=== PATIENT | female | born 1995 | race Two or more races ===

== ENCOUNTER 2024-10-26 14:40 | Emergency (ER) | payer MEDICAID, SELFPAY ==
[2024-10-26 15:17] VITALS: BP 113/77; PULSE 77; RESP 18; TEMP 36.8; O2SAT 99
--- NOTE | 2024-10-26 15:42 | EDRME_ITS ---
Rapid Medical Screening Exam RME Arrival date/time: 10/26/24 14:40 Chief Complaint: Vaginal Bleeding Vital signs: Vital Signs Temperature 98.3 F 10/26/24 15:17 Pulse Rate 77 10/26/24 15:17 Respiratory Rate 18 10/26/24 15:17 Blood Pressure 113/77 10/26/24 15:17 Pulse Oximetry (%) 99 10/26/24 15:17 Oxygen Delivery Method Room Air 10/26/24 15:17 Pulse ox is 99% room air Vital signs reviewed by provider: Yes [facility] Narrative: For the last 15 days patient complains of vaginal bleeding she describes it as slight and seen only upon wiping. She also complains of left lower quadrant pain. Patient has had mixed results with regards to testing.
--- NOTE | 2024-10-26 15:54 | XR_ITS ---
Examination: Complete OB ultrasound, less than 14 weeks, transabdominal Date and time of exam: October 26, 2024 1603 hours INDICATIONS: Vaginal bleeding beginning 13 days ago Technique: Obstetrical ultrasound images less than 14 weeks performed via transabdominal imaging Findings: Uterus 8.9 cm no uterine mass or intrauterine gestation Endometrial stripe 13 mm Right ovary 2.9 cm arterial flow Left ovary 3.1 cm arterial flow IMPRESSION: No uterine mass or intrauterine gestation
[2024-10-26 16:52] LABS: Basophils # (Auto) 0.0 Thou/mm3 (0.0-0.2); Basophils % (Auto) 0 % (0-2.5); Eosinophils # (Auto) 0.0 Thou/mm3 (0.0-0.5); Eosinophils % (Auto) 0 % (0-10); Hematocrit 39.6 % (36.0-46.0); Hemoglobin 13.1 g/dL (12.0-16.0); Immature Granulocytes Auto 0.02 Thou/mm3 (0.00-0.00); Lymphocytes # (Auto) 1.5 Thou/mm3 (1.0-4.8); Lymphocytes % (Auto) 20 % (10-50); Mean Corpuscular HGB Conc 33.1 g/dl (31.0-37.0); Mean Corpuscular Hemoglobin 30.5 pg (25.0-35.0); Mean Corpuscular Volume 92 fL (80-100); Monocytes # (Auto) 0.4 Thou/mm3 (0.0-0.8); Monocytes % (Auto) 5 % (0-12); Neutrophils # (Auto) 5.7 Thou/mm3 (1.8-7.7); Neutrophils % (Auto) 75 % (37-80); Nucleated Red Blood Cell # 0.00 Thou/mm3 (0.00-0.00); Nucleated Red Blood Cell % 0 /100 WBC (0); Platelet Count 286 Thou/mm3 (140-440); RDW Standard Deviation 43.0 fL (36.4-46.3); Red Blood Count 4.29 Miln/mm3 (4.00-5.20); White Blood Count 7.7 Thou/mm3 (3.6-11.0)
[2024-10-26 17:31] LABS: Alanine Aminotransferase < 7 U/L (10-49); Albumin, Serum 4.9 gm/dL (3.5-5.0); Albumin/Globulin Ratio 1.9 (1.2-2.2); Alkaline Phosphatase 48 U/L (46-116); Anion Gap 9 (7-16); Aspartate Amino Transferase 14 U/L (0-34); BUN/Creatinine Ratio 13 Ratio (12-20); Beta HCG,Quantitative 56 mIU/mL (<5.0); Bilirubin,Total 0.7 mg/dL (0.3-1.2); Blood Urea Nitrogen 9 mg/dL (9-23); Calcium 10.0 mg/dL (8.3-10.6); Calcium (Corrected) 10.0 mg/dL (8.5-10.1); Carbon Dioxide 25.8 mMol/L (20.0-31.0); Chloride 106 mMol/L (98-107); Creatinine (Component) 0.7 mg/dL (0.6-1.3); Estimated Creatinine Clearance 90.9 mL/min (>60); Globulin 2.6 gm/dL (2.3-3.5); Glucose 114 mg/dL (74-106); Lipase 36 U/L (12-53); Osmolality,Calculated 280 (275-295); Potassium 4.5 mMol/L (3.4-5.1); Sodium 141 mMol/L (136-145); Total Protein 7.5 gm/dL (5.7-8.2); eGFR > 60 See Note
--- NOTE | 2024-10-26 19:42 | PD.EDVAGBL ---
ED OB Contraction Preg RMI/HPI General Chief complaint: Vaginal Bleeding Stated complaint: VAGINAL BLEEDING, Time Seen by Provider: 10/26/24 18:17 Arrival date/time: 10/26/24 14:40 RME / HPI RME / HPI Narrative: For the last 15 days patient complains of vaginal bleeding she describes it as slight and seen only upon wiping. She also complains of left lower quadrant pain. Patient has had mixed results with regards to testing. This section includes all my notes and documentations, including HPI, PE, and ED course. Alex Borges MD HPI: 29yo female here with vaginal spotting for the last couple of weeks. LMP was 09/17/24. Patient recently had a positive at-home test. No abdominal pain or back pain. No other complaints reported. ROS: All negative except as documented in HPI. Physical Exam: General: Alert and oriented. No acute distress when remaining still. Eyes: Conjunctivae and lids clear. ENT: No nasal congestion. Neck: Supple. Heart: RRR. Lungs: No respiratory distress. Good air movement. No rhonchi, wheezing, rales. Abdomen: Soft and nontender. Normal bowel sounds. No distension. No rebound or guarding. Back: No CVA tenderness. Skin: Warm and dry. Neuro: Alert and oriented X 3. I reviewed all diagnostic test results. My review of the OB ultrasound report is no IUP. Blood tests unremarkable except Beta HCG 56. At this point, diagnoses include threatened miscarriage. Recommended expectant management. Based on my best medical judgment, made decision no further evaluation or treatment indicated at this time. Patient understands and agrees to the discharge instructions customized and printed, see below. Discharge Instructions from Dr. Borges printed for you: 1. After evaluation, we can't see in your uterus. 2. Based on your last menstruation 09/17/24, gestational age today is 5 4/7 weeks. 3. Only time will tell what will happen. If your bleeding gets severe, you can have a miscarriage. If your symptoms stop, you can have successful . 4. If you do have a miscarriage, we won't be able to save your baby. Under 20-24 weeks, we can't save the baby. 5. No sexual activity until cleared by a doctor taking care of you. 6. See a private doctor on 10/29/24 for recheck and further care. Ask to review all test results and official radiology reports, to make sure you receive all necessary follow-ups and monitoring. Your hCG ( hormone level) was 56. This doubles every 3 days in normal . Ask for repeat ultrasound in 1-2 weeks. But not before, will be too early to see any . 7. Seek immediate medical care with intolerable pain, extremely heavy vaginal bleeding (soaking more than 3 pads per hour), or with any concerns. Alex Borges MD Related Data Allergies Allergy/AdvReac Type Severity Reaction Status Date / Time No Known Allergies Allergy Verified 10/26/24 14:44 Review of Systems Review of Systems Systems Reviewed: All systems reviewed, normal except as documented Past Medical History Social History SMOKING STATUS: Never smoker ED Exam Narrative Physical exam: As noted in HPI. Course Quality Measures none Orders Category Date Time Status US OB <= 14 weeks fetus Stat Exams 10/26/24 15:54 Taken Beta HCG,Quantitative Stat Lab 10/26/24 16:24 Completed CBC Stat Lab 10/26/24 16:24 Completed CMP [Comprehensive Metabolic Panel] Stat Lab 10/26/24 16:24 Completed Lipase Stat Lab 10/26/24 16:24 Completed Rh Testing Only Stat Lab 10/26/24 16:24 Completed Vital Signs Vital signs: Vital Signs Temperature 98.3 F 10/26/24 15:17 Pulse Rate 77 10/26/24 15:17 Respiratory Rate 18 10/26/24 15:17 Blood Pressure 113/77 10/26/24 15:17 Pulse Oximetry (%) 99 10/26/24 15:17 Oxygen Delivery Method Room Air 10/26/24 15:17 Vaginal Bleeding MDM Narrative MDM Narrative: 29yo female here with vaginal spotting for the last couple of weeks. LMP was 09/17/24. Patient recently had a positive at-home test. No abdominal pain or back pain. No other complaints reported. Patient data External records reviewed:: [facility] previous records (Per chart review, patient has no previous ED visits or admissions to this facility.) Clinical information provided by:: patient Social determinants that could affect healthcare access:: none Patient has the following chronic illnesses:: none How is presenting disease/condition affected by chronic disease/condition?: no chronic disease Evaluation data The following diagnostics were reviewed and interpreted by me:: lab results Lab and/or radiology exams considered but not ordered:: none Interpretation Summary: I reviewed all diagnostic test results. My review of the OB ultrasound report is no IUP. Blood tests unremarkable except Beta HCG 56. Medications / Prescriptions Medications or Prescriptions considered but not ordered:: none Medication administrations:: none Consultations Consultation(s) initiated? (list below): No Diagnosis Vaginal Bleeding Differential Diagnosis: threatened , incomplete and other (vaginal bleeding in early ) Most likely diagnosis given after review of the tests above:: Threatened miscarriage Admission Indicated Admission indicated?: not indicated Explain why admission is indicated or not indicated:: With no condition needing emergent intervention, there was no indication for admission. Admission Request Was there a request for admission?: No Disposition Plan Disposition Plan: Discharge Discharge Attestation Discharge Attestation: The patient and all family members were given an opportunity to ask questions and understood the discharge instructions. Discharge instructions specifically effects, indications for sooner follow up or return to the emergency department, and the expected course of current diagnosis. Patient condition: Stable Discharge Plan Plan Patient Disposition: HOME (Self Care) Prescriptions/Referrals Referrals: No Primary/Family,Physician [Primary Care Provider] - In 1 week Problem List Clinical Impression: Threatened miscarriage Patient/Caregiver Discharge Instructions Discharge Activity: activity as tolerated Education Materials: ED Possible Miscarriage ... Additional Instructions: Discharge Instructions from Dr. Borges printed for you: 1.? After evaluation, we can't see in your uterus. 2.? Based on your last menstruation 09/17/24, gestational age today is 5 4/7 weeks. 3.? Only time will tell what will happen. If your bleeding gets severe, you can have a miscarriage. If your symptoms stop, you can have successful . 4.? If you do have a miscarriage, we won't be able to save your baby. Under 20-24 weeks, we can't save the baby. 5.? No sexual activity until cleared by a doctor taking care of you. 6.? See a private doctor on 10/29/24 for recheck and further care. Ask to review all test results and official radiology reports, to make sure you receive all necessary follow-ups and monitoring. Your hCG ( hormone level) was 56.? This doubles every 3 days in normal . Ask for repeat ultrasound in 1-2 weeks. But not before, will be too early to see any . 7.? Seek immediate medical care with intolerable pain, extremely heavy vaginal bleeding (soaking more than 3 pads per hour), or with any concerns. Instrucciones de rita de la Dra. Borges impresas para usted: 1. Despu?s de la evaluaci?n, no se observa embarazo en jimenez ?tero. 2. Seg?n jimenez ?ltima menstruaci?n, el 17/09/24, jimenez edad gestacional actual es de 5 4/7 semanas. 3. Solo el tiempo dir? qu? suceder?. Si el sangrado es intenso, podr?a sufrir un aborto espont?tricia. Si los s?ntomas desaparecen, podr? tener un embarazo exitoso. 4. Si sufre un aborto espont?tricia, no podremos salvar a jimenez beb?. Si tiene menos de 20 a 24 semanas, no podremos salvar al beb?. 5. No tenga relaciones sexuales hasta que el m?dico que la atienda le d? el rita. 6. Consulte con un m?dico particular el 10/29/24 para judith nueva revisi?n y atenci?n adicional. Solicite revisar todos los resultados de las pruebas y los informes radiol?gicos oficiales para asegurarse de recibir todos los seguimientos y la monitorizaci?n necesarios. Jimenez nivel de hCG (hormona del embarazo) fue de 56. Alyssa se duplica cada 3 d?as en un embarazo normal. Solicite judith ecograf?a de repetici?n en 1 o 2 semanas. Terrell no antes, ser? demasiado pronto para detectar un embarazo. 7. Busque atenci?n m?dica inmediata si presenta dolor insoportable, sangrado vaginal extremadamente abundante (que empape m?s de 3 toallas sanitarias por hora) o si tiene alguna inquietud. Print Language: Cuban Stand Alone Forms: Kami Award Info., Patient Portal Info Letter
--- NOTE | 2024-10-26 21:47 | PRELIM_ITS ---
Pelvic ultrasound (transabdominal). October 26, 2024 1603 hours Clinical history: Spotting Technique: Real-time ultrasound was performed using Duplex scanning including arterial inflow, venous outflow, color and spectral Doppler analysis of both ovaries. Comparison: No prior study is available for comparison. Findings: The uterus is normal in size measuring 8.9 x 4.4 x 6.4 cm. The endometrium is thickened and heterogeneous, measuring 1.3 cm. No intrauterine gestational sac is seen at this time. The right ovary measures 2.9 x 1.5 x 2 cm and is unremarkable. The left ovary measures 3.1 x 1.6 x 1.8 cm and is unremarkable. Both ovaries demonstrate color flow and spectral waveforms on Doppler evaluation. No adnexal mass is demonstrated. There is no free fluid. Impression: No evidence of intrauterine gestation at this time. Possibilities include very early intrauterine , recent or occult ectopic gestation. Recommend correlation with serum beta hCG and sonographic follow up. Report Electronically Signed By: Phil Long 10/26/2024 9:46:24 PM [EST]
== END 2024-10-26 19:58 | disposition home or self-care (01) ==
PROVIDERS: Physician Assistant; Emergency Provider Emergency Medicine
DX: O20.0 Threatened abortion (principal)
CPT/HCPCS: 36415; 76801; 80053; 83690; 84702; 85025; 86901; 99283

== ENCOUNTER 2024-10-29 11:33 | Outpatient (AMB) | payer MEDICAID, SELFPAY ==
--- NOTE | 2024-10-29 11:50 | AMB.OBINITIA ---
Vital Signs 10/29/24 11:51 Height 1.57 m Height Method Stated Weight 48.648 kg Weight Measurement Method Standing Scale BMI 19.6 BP 128/92 H Blood Pressure Source Automatic Cuff Blood Pressure Location Right Upper Arm Position Sitting Respiration 17 Pulse 81 Pulse Source Monitor Temp 98.1 F Temp Source Temporal Artery Scan Pulse Oximetry (%) 98 Oxygen Delivery Method Room Air Allergies/Home Meds Allergies & Medications Allergies No Known Allergies Allergy (Verified 10/29/24 11:52) Medication Reconciliation vitamin-ferrous fumarate 28 mg iron-folic acid 800 mcg tablet ( Vitamins with Minerals) 1 tab PO QDAY #60 tabs 10/29/24 [Rx] Intake Visit Data Collection New Patient or Established: Established Patient (seen at [facility] within 3 years) Reason for Visit:: OBI Seen by Clinical Staff ONLY (RN/MA): No Do You Feel Safe at Home: Yes Authorities Contacted: N/A PCP or OBGYN visit in last 3 months: Yes Date of Last PCP or OBGYN visit: 10/24/24 Hx Now: Yes Are you currently on any form of Control: No Pain Present Currently: No Pain Scale Used: Michael-Dc/Numerical Pain scale:: 0 Smoking Status Smoking Status: Never smoker Questionnaires Covid-19 Vaccine Questionnaire Has patient been vacinated for Covid-19 Have you been vacinated for Covid-19: Yes PHQ-9 PHQ-2 Over the last 2 weeks, how often have you been bothered by any of the following problems? 1. Little interest or pleasure in doing things: not at all 2. Feeling down, depressed, or hopeless: not at all Total score: 0 PHQ-9 3. Trouble falling or staying asleep, or sleeping too much: Not at all 4. Feeling tired or having little energy: Not at all 5. Poor appetite or overeating: Not at all 6. Feeling bad about yourself - or that you are a failure or have let yourself or your family down: Not at all 7. Trouble concentrating on things, such as reading the newspaper or watching television: Not at all 8. Moving or speaking so slowly that other people could have noticed? - Or the opposite - being so fidgety or restless that you have been moving around a lot more than usual: not at all 9. Thoughts that you would be better off or of hurting yourself in some way: Not at all Total score: 0 If you checked off any problems, how difficult have these problems made it for you to do your work, take care of things at home, or get along with other people?: not difficult at all Source: Developed by Drs. Francisco Parikh, Cassie Calloway, Jefry Estrada and colleagues, with an educational bello from [employer]. Depression screen completed yes Social History Living Situation History Marital Status: Lives With: Family Housing: House Tobacco History Smoking Status: Never smoker Second Hand Smoke Exposure: No Alcohol History Alcohol Intake: Never Domestic Abuse History Do You Feel Safe at Home: Yes History of Present Illness HPI Narrative 29-year-old 1 para 0 for OBI. Patient recently was seen in the emergency room October 26 for history of bleeding x 15 days. She reports ports that she is still spotting pink now. Her last period September 17, 2024. This would give a due date June 24, 2025. An ultrasound in the ER in 10 26 showed no intrauterine no mass. Uterus was normal size. An endometrial stripe of 13 mm. There is no adnexal masses noted. Patient denies any existing medical problems. Denies social habits. And denies surgeries. hCG on October 26 was 56. patient denies first trimester discomforts. No nausea no vomiting OB Initial Visit OB Flowsheet OB Flowsheet Initial Weight: Not Recorded Date <del>?</del> EGA Weight BP Alb Glu CTX Pres Fundal ht FHR Mov Dilation Station Effacement Hx Notes Visit Note 10/29/24 <del>?</del> 6w 0d 48.648 kg 128/92 absent unknown 4 29-year-old 1 para 0 for OBI. Patient is been bleeding for 15 days. Threatened SAB diagnosed. Denies first trimester discomforts. Patient is still bleeding. Her hCG October was 56. Discussed with patient her current history. And hCG x 2 ordered. I discussed SAB precautions. And danger signs and symptoms. ER precautions with parameters. Increased rest and fluids. Return in 2 weeks to evaluate hCG levels. And patient to ER for worsening bleeding or signs of SAB Menstrual History Menstrual reliability: definite Flow: normal Menstrual regularity: regular Monthly: Yes Age at menarche: 10 On control pills at conception: No OB History : 1 Infection History & Risk Evaluation History of STDs: none HIV risk evaluation: low risk Hepatitis B risk evaluation: low risk Patient or partner has history of Genital Herpes: No Varicella/chicken pox status: unknown Genetic Screening & History Genetic Screening/Teratology Counseling - Includes patient, baby's father, or anyone in either family with: 1. Patient's age 35 years or older as of estimated date of delivery: No 2. Thalassemia (Nigerian, Armenian, Mediterranean, or Background); MCV less than 80: No 3. Neural Tube Defect (Meningomyelocele, Spina Bifida, or Anencephaly): No 4. Congenital Heart Defect: No 5. Down Syndrome: No 6. Lennox-Sachs (Ashkenazi Amish, Cajun, [place]): No 7. Yessy Disease (Ashkenazi Amish): No 8. Familial Dysautonomia (Ashkenazi Amish): No 9. Sickle Cell Disease or Trait (): No 10. Hemophilia or other blood disorders: No 11. Muscular Dystrophy: No 12. Cystic Fibrosis: No 13. Campbell's Chorea: No 14. Mental Retardation/Autism: No 15. Other inherited genetic or chromosomal disorder: No 16. Maternal Metabolic Disorder (EG,TYPE 1 Diabetes, PKU): No 17. Patient or baby's father had a child with defects not listed above: No 18. Recurrent loss or a stillbirth: No 19. Medications (including supplements, vitamins, herbs or otc drugs)/illicit/recreational drugs/alcohol since last menstrual period: No 20. Any other: No Infection History 1. Live with someone with TB or exposed to TB: No 2. Rash or viral illness since last menstrual period: No 3. Hepatitis B,C: No Other (see comments) Source: [employer] Review of Systems Review of Systems Systems Reviewed: All systems reviewed, normal except as documented Exam General Limitations: no limitations General Appearance: alert, in no apparent distress, comfortable, cooperative, healthy appearing, well developed and well groomed Head Head exam: atraumatic, normocephalic and normal inspection Resp Respiratory exam: Present normal lung sounds bilaterally Card Cardiovascular exam: Present regular rate, normal rhythm and normal heart sounds Abdominal Abdominal exam: Present soft and normal bowel sounds Psych Psychiatric exam: Present normal affect and normal mood Office Procedures OB Clinic LOC & Office Proc's Nursing/Assessment Patient Status: Established Patient OB Clinic Nursing Assessment: Medication Reconciliation, Update PMH in EMR and Vital Signs OB Clinic Coordination of Care: Complex Care and Chronic Disease 1-5, Consent,records obtained, informed consent, Education Simp Pt/Fam, Lab and Imaging orders and Staff clarify orders Special Needs: Heart tones Established Patient Charge Established Patient Point Assignment: 130 Established Patient Point Charge: EP Level 4 (120-155) Assessment & Plan Diagnosis / Problem List (1) Encounter for supervision of high risk in first trimester, antepartum: Status: Acute (2) Threatened miscarriage: Status: Acute Additional Plan Discussed SAB precautions. Increase rest. No heavy lifting. No sex. Increase fluids. vitamins ordered to pharmacy. I discussed ER precautions with parameters. Beta-hCG's x 2. And patient will return in 2 weeks to evaluate hCG levels. To ER if worsening signs of bleeding and cramping Follow Up: 2 Weeks (f/u hcg)
[2024-10-29 11:51] VITALS: BP 128/92; PULSE 81; RESP 17; TEMP 36.7; O2SAT 98; BMI 19.6
== END 2024-10-29 12:24 | disposition home or self-care (01) ==
LOC: HODSOBC 11:33
PROVIDERS: Supervising Provider Advanced Practice Midwife; Visit Provider Advanced Practice Midwife
DX: O20.0 Threatened abortion (principal); Z3A.01 Less than 8 weeks gestation of pregnancy
CPT/HCPCS: 99214; G0463

== ENCOUNTER 2024-11-12 10:28 | Outpatient (AMB) | payer MEDICAID, SELFPAY ==
[2024-11-12 10:55] VITALS: BP 115/78; PULSE 93; RESP 17; TEMP 36.8; O2SAT 98; BMI 19.9
--- NOTE | 2024-11-12 10:55 | OBCLNT_ITS ---
Vital Signs 11/12/24 10:55 Height 1.57 m Height Method Measured Weight 49.158 kg Weight Measurement Method Standing Scale BMI 19.9 BP 115/78 Blood Pressure Source Automatic Cuff Blood Pressure Location Right Upper Arm Position Sitting Respiration 17 Pulse 93 Pulse Source Monitor Temp 98.2 F Temp Source Temporal Artery Scan Pulse Oximetry (%) 98 Oxygen Delivery Method Room Air Allergies/Home Meds Allergies & Medications Allergies No Known Allergies Allergy (Verified 11/12/24 10:56) Medication Reconciliation vitamin-ferrous fumarate 28 mg iron-folic acid 800 mcg tablet ( Vitamins with Minerals) 1 tab PO QDAY #60 tabs 10/29/24 [Rx Confirmed 11/12/24] folic acid 1 mg tablet 1 mg PO QDAY #60 tabs 11/12/24 [Rx] Intake Visit Data Collection New Patient or Established: Established Patient (seen at [facility] within 3 years) Reason for Visit:: OBC\LAB RESULTS Consent obtained for Telemed Visit: No Seen by Clinical Staff ONLY (RN/MA): No Manager Transmission Required: No Do You Feel Safe at Home: Yes Authorities Contacted: N/A PCP or OBGYN visit in last 3 months: Yes Date of Last PCP or OBGYN visit: 10/29/24 Hx Now: Yes Are you currently on any form of Control: No Pain Present Currently: No Pain Scale Used: Michael-Dc/Numerical Pain scale:: 0 Smoking Status Smoking Status: Never smoker Questionnaires Covid-19 Vaccine Questionnaire Has patient been vacinated for Covid-19 Have you been vacinated for Covid-19: Yes PHQ-9 PHQ-2 Over the last 2 weeks, how often have you been bothered by any of the following problems? 1. Little interest or pleasure in doing things: not at all PHQ-9 8. Moving or speaking so slowly that other people could have noticed? - Or the opposite - being so fidgety or restless that you have been moving around a lot more than usual: not at all Source: Developed by Drs. Francisco Parikh, Cassie Calloway, Jefry Estrada and colleagues, with an educational bello from [employer]. Social History Living Situation History Lives With: Family Housing: House Tobacco History Smoking Status: Never smoker Second Hand Smoke Exposure: No Alcohol History Alcohol Intake: Never Domestic Abuse History Do You Feel Safe at Home: Yes Care OB Visit Log OB Flowsheet Initial Weight: Not Recorded Date -?-?-?-?-?-?-?-?-?-?-?-?- EGA Weight BP Alb Glu CTX Pres Fundal ht FHR Mov Dilation Station Effacement Hx Notes Visit Note 10/29/24 -?-?-?-?-?-?-?-?-?-?-?-?- 6w 0d 48.648 kg 128/92 absent unknown 4 29-year-old 1 para 0 for OBI. Patient is been bleeding for 15 days. Threatened SAB diagnosed. Denies first trimester discomforts. Patient is still bleeding. Her hCG October with was 56. Discussed with p laura her current history. And hCG x 2 ordered. I discussed SAB precautions. And danger signs and symptoms. ER precautions with parameters. Increased rest and fluids. Return in 2 weeks to evaluate hCG levels. And patient to ER for worsening bleeding or signs of SAB 11/12/24 -?-?-?-?-?-?-?-?-?-?--?-?- 8w 0d 49.158 kg 115/78 Bleeding is less now. Brown discharge. No complaints of cramps or pain. Patient had questions about a miscarriage. 10/26: HC. 11/01/24: HC, 11/08/24: HC Discussed hCG results. Discussed diet and regular exercise. Continue folic acid 1 mg daily. And vitamins. Discussed that contraception for now. Condoms are NFP and return if patient desires control or another GLENNA Calculator Estimated Delivery Date Method Current WG Current Estimate 06/24/25 LMP (Uncertain) 8w 0d Office Procedures OB Clinic LOC & Office Proc's Nursing/Assessment Patient Status: Established Patient OB Clinic Nursing Assessment: Medication Reconciliation, Update PMH in EMR and Vital Signs OB Clinic Coordination of Care: Complex Care and Chronic Disease 1-5, Consent,records obtained, informed consent, Education Simp Pt/Fam and Results/Orders obtained Established Patient Charge Established Patient Point Assignment: 80 Established Patient Point Charge: EP Level 3 (80-115) Assessment & Plan Diagnosis / Problem List (1) Complete or unspecified spontaneous without complication: Status: Acute Plan Discussed SAB results. Discussed preconceptual counseling. Will order 4 mg folic acid take daily. And patient will continue to take prenatals. Condoms for contraception. Work on diet and exercise. And return with positive test or as needed Additional Plan Follow Up: 1 Year (contraception)
== END 2024-11-12 11:44 | disposition home or self-care (01) ==
LOC: HODSOBC 10:28
PROVIDERS: Supervising Provider Advanced Practice Midwife; Visit Provider Advanced Practice Midwife
DX: O03.9 Complete or unspecified spontaneous abortion without complication (principal)
CPT/HCPCS: 99213; G0463